=== PATIENT | female | born 1985 | race Caucasian/White ===

== ENCOUNTER → 2019-04-15 | Outpatient (CLI) | payer OTHER ==
[~2019-04-15] MED LIST: AMOXICILLIN500 MG PO; MOTRIN800 MG PO; Tobrex Ophth S2.5 ML OPH
== END | disposition home or self-care (01) ==
LOC: ORTHO 02:31
DX: G56.03 Carpal tunnel syndrome, bilateral upper limbs (principal); R20.0 Anesthesia of skin

== ENCOUNTER → 2019-05-14 | Day surgery (SDC) | payer OTHER ==
[2019-05-12 09:34] LABS: BASO % 0.5 % (0.0-1.0); EOS # 0.1 10*3/uL (0.0-0.4); EOS % 1.4 % (1.0-4.0); HEMATOCRIT 41.1 % (37.0-47.0); HEMOGLOBIN 13.9 g/dl (12.0-16.0); LYMPH % 17.8 % (27.0-41.0); MEAN CELL VOLUME 95.4 fl (81.0-99.0); MEAN CORPUSCULAR HGB 32.3 pg (27.0-31.0); MEAN CORPUSCULAR HGB CONC 33.8 g/dl (33.0-37.0); MEAN PLATELET VOLUME 9.5 fl (9.6-12.3); MONO # 0.7 10*3/uL (0.1-1.0); MONO % 12.8 % (3.0-9.0); NEUT # 3.9 10*3/uL (2.3-7.9); NEUT % 67.2 % (47.0-73.0); PLATELET COUNT AUTOMATED 333 10*3/uL (130-400); RED BLOOD COUNT 4.31 10*6/uL (4.10-5.10); RED CELL DISTRI WIDTH 12.1 % (0-14.5); WHITE BLOOD COUNT 5.8 10*3/uL (4.8-10.8)
[2019-05-12 09:54] LABS: BUN 9 mg/dl (7-24); CHLORIDE 101 mmol/L (98-107); CREATININE 0.68 mg/dL (0.55-1.02); POTASSIUM 3.5 mmol/L (3.5-5.1); SODIUM 133 mmol/L (136-145)
[~2019-05-14] VITALS: Ht 154.9 cm; Wt 59.0 kg
[~2019-05-14] MED LIST changes: +BIOTIN1 M2 PO; +FLONASE ALLERG9.9 ML NAS; +LEXAPRO20 MG PO; +NEURONTIN100 MG PO; +PERCOCET 5-3251 EACH PO; +VYVANSE70 MG PO; +XANAX0.5 MG PO; +ZOFRAN4 MG PO; +ZYRTEC10 M3 PO
--- NOTE | ~2019-05-14 | EKG ---
[place], [place] ELECTROCARDIOGRAM REPORT NAME: JOSEPH SKINNER UNIT #: [id number] ROOM: DOCTOR: EPIPHANY DRAFT REPORT BIRTHDATE: [birth year] [facility] Test Date: 2019-05-12 Test Time: 09:15:45 Pat Name: JOSEPH SKINNER Department: Room: Gender: F Virtual Assistant: : 1985 Requested By: GOLDY WILKINS Order Number: [id number] Reading MD: Heena Garcia MD Measurements Intervals Foster Rate: 88 P: 56 SD: 126 QRS: 60 QRSD: 102 T: 37 QT: 360 QTc: 436 Interpretive Statements Sinus rhythm RSR' in V1 or V2, right VCD or RVH Baseline wander in lead(s) V1,V2 Electronically Signed On 05-13-2019 15:46:41 PDT by Heena Garcia MD CM:EKGRPT:ELECTROCARDIOGRAM REPORT [id number] GOLDY MARTE DRAFT REPORT GOLDY WILKINS DO
[2019-05-14 10:44] VITALS: BP 124/82
[2019-05-14 10:59] VITALS: BP 139/93
[2019-05-14 11:14] VITALS: BP 144/94
[2019-05-14 11:29] VITALS: BP 134/89
[2019-05-14 11:45] VITALS: BP 130/92
== END | disposition home or self-care (01) ==
LOC: SDC 05-07 14:00
PROVIDERS: Orthopaedic Surgery
DX: G56.03 Carpal tunnel syndrome, bilateral upper limbs (principal); F41.9 Anxiety disorder, unspecified; I10 Essential (primary) hypertension; F17.210 Nicotine dependence, cigarettes, uncomplicated; Z79.899 Other long term (current) drug therapy; Z87.81 Personal history of (healed) traumatic fracture

== ENCOUNTER 2021-05-13 21:41 | Emergency (ER) | payer OTHER | END 2021-05-13 23:00 | disposition left against medical advice (07) | LOC: ED 21:41 | DX: R10.9 Unspecified abdominal pain (principal); M54.9 Dorsalgia, unspecified; Z53.21 Procedure and treatment not carried out due to patient leaving prior to being seen by health care provider ==

== ENCOUNTER → 2021-07-21 | Outpatient (CLI) | payer OTHER | END | disposition home or self-care (01) | LOC: COVID19 16:42 | PROVIDERS: ATTEND Podiatrist Foot & Ankle Surgery | DX: U07.1 COVID-19 (principal) ==

== ENCOUNTER 2024-02-26 18:20 | Emergency (ER) | payer OTHER ==
[~2024-02-26] VITALS: Ht 162.5 cm; Wt 61.2 kg
[2024-02-26 18:43] VITALS: BP 148/104
[2024-02-26] MEDS ORDERED: PREDNISONE20 M1 PO (19:28)
[2024-02-26] MEDS ORDERED: methylPREDNISolone sod succ 125 MG VIAL IM ONE (19:30)
== END 2024-02-26 19:42 | disposition home or self-care (01) ==
LOC: ED
DX: L23.7 Allergic contact dermatitis due to plants, except food (principal); Z88.6 Allergy status to analgesic agent; Z79.899 Other long term (current) drug therapy